=== PATIENT | male | born 1970 | race Caucasian/White ===

== ENCOUNTER → 2023-09-20 14:40 | Outpatient (CLI) | payer SELFPAY ==
--- NOTE | ~2023-09-20 | CT_ITS ---
EXAMINATION: CT brain wo con DATE: 09/20/2023 14:59 INDICATION: Persistent headaches TECHNIQUE: Computed tomographic angiography (CTA) of the head was performed without and with 100 mL O mnipaque-350 intravenous contrast. Exam dose: 645.69 mGy-cm total exam DLP. Volume-rendered and ma ximum intensity projection 3D reconstructions of the intracranial arteries were created by the techno logist on a separate workstation. COMPARISON: None. FINDINGS: No intracranial mass lesion or hemorrhage or cerebrovascular accident. No midline shift or mass effect. Normal ventricular size. Normal cruz-white matter differentiation. No subdural or epidur al hematoma is detected. Bilateral carotid siphon internal carotid artery calcifications are noted. No fracture or bone destruction of the cranial vault. The mastoid air cells are normally developed an d aerated. Included paranasal sinuses are essentially unremarkable other than minimal soft tissue thi ckening and perhaps a very mucous retention cyst along the anterosuperior wall of the right maxillary antrum. IMPRESSION: Cerebral atherosclerosis; no significant intracranial abnormality is noted otherwise Reviewed, dictated and finalized at [facility]. Reviewed, dictated and finalized at [facility]. REPAIRER
== END ==
PROVIDERS: PCP Physician Assistant; Visit Provider Physician Assistant
DX: G44.52 New daily persistent headache (NDPH) (principal)
CPT/HCPCS: 70450